=== PATIENT | female | born 1965 | race Caucasian/White ===

== ENCOUNTER 2020-01-23 23:08 | Emergency (ER) | payer SELFPAY ==
[~2020-01-23] VITALS: Ht 193 cm; Wt 76.0 kg
[2020-01-23 23:08] VITALS: BP 124/76
[2020-01-23] MEDS ORDERED: KETOROLAC 15 MG/ML VIAL. IVP ONE (23:45)
[2020-01-23] MEDS ORDERED: IV NORMAL SALINE 1,000ML 1,000 ML IV ONE (23:45)
[2020-01-23] MEDS ORDERED: IOHEXOL 300 MG/ML 75 ML VIAL. IV ONE (23:45)
[2020-01-23] MEDS ORDERED: FAMOTIDINE 20 MG/2 ML VIAL IVP ONE (23:45)
[2020-01-23] MEDS ORDERED: CONTRAST GIVEN MC PRN (23:45)
[2020-01-23 23:49] LABS: BASO % 1 % (0-3); EOS # 0.1 x10^3/uL (0.0-0.7); EOS % 1 % (0-3); HEMATOCRIT 37.3 % (36.0-47.0); HEMOGLOBIN 12.1 g/dL (12.0-15.5); LYMPH # 2.6 x10^3/uL (1.0-4.8); LYMPH % 43 % (24-48); MEAN CORPUSCULAR HEMOGLOBIN 27 pg (25-35); MEAN CORPUSCULAR HGB CONC 33 g/dL (31-37); MEAN CORPUSCULAR VOLUME 83 fL (79-100); MONO # 0.5 x10^3/uL (0.0-1.1); MONO % 8 % (0-9); NEUT # 2.9 x10^3uL (1.8-7.7); NEUT % 47 % (31-73); PLATELET COUNT 246 x10^3/uL (140-400); RED BLOOD COUNT 4.49 x10^6/uL (3.50-5.40); RED CELL DISTRIBUTION WIDTH 13.7 % (11.5-14.5); WHITE BLOOD COUNT 6.1 x10^3/uL (4.0-11.0)
[2020-01-23 23:57] LABS: BACTERIA,URINE 0 /HPF (0-FEW); BILIRUBIN,URINE NEG (NEG); CLARITY,URINE CLEAR; COLOR,URINE YELLOW; GLUCOSE,URINE NEG (NEG); NITRITE,URINE NEG (NEG); RBC,URINE 0 /HPF (0-2); SQUAMOUS EPITHELIAL CELL,UR OCC /LPF; UROBILINOGEN,URINE 0.2 mg/dL (0.2 mg/dL); WBC,URINE OCC /HPF (0-4)
[2020-01-24] LABS: CREATININE 0.8 mg/dL (0.6-1.0); GFR 74.7; POTASSIUM 3.6 mmol/L (3.5-5.1)
[2020-01-24 00:06] LABS: ALBUMIN 3.8 g/dL (3.4-5.0); MAGNESIUM 2.3 mg/dL (1.8-2.4); TOTAL BILIRUBIN 0.3 mg/dL (0.2-1.0); TOTAL PROTEIN 7.7 g/dL (6.4-8.2)
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
[2020-01-24] MEDS ORDERED: ONDANSETRON PF 4 MG/2 ML VIAL. IVP ONE (00:45)
--- NOTE | 2020-01-24 00:45 | RAD ---
CT scan of the abdomen and pelvis with contrast 01/24/2020 CLINICAL HISTORY: Left lower quadrant abdominal pain. TECHNIQUE: After the intravenous administration of 75 cc of Omnipaque 300, contiguous, 5 mm axial sections were obtained through the abdomen and pelvis. One or more of the following individualized dose reduction techniques were utilized for this study: 1. Automated exposure control. 2. Adjustment of the mA and/or kV according to patient size. 3. Use of iterative reconstruction technique. FINDINGS: Images through the lung bases demonstrate minimal dependent subsegmental atelectasis bilaterally. The liver, spleen, pancreas, adrenal glands and kidneys are within normal limits. Atherosclerotic calcification of the abdominal aorta is seen. The abdominal aorta tapers normally. The gallbladder is contracted. No free fluid or free air is seen within the abdomen. There is no evidence of bowel obstruction. Air and stool seen throughout the colon. The appendix is well-visualized and is within normal limits. Images through the pelvis demonstrate the urinary bladder distended with urine. Calcifications are seen within the pelvis consistent with phleboliths. Scattered diverticula are seen involving the sigmoid colon. No inflammatory changes are seen in the adjacent fat. No free fluid or abnormal fluid collection is noted. No adnexal mass is seen. Mild S-shaped curvature of the thoracolumbar spine is seen. Degenerative changes are seen involving the lower thoracic and mid and lower lumbar spine. IMPRESSION: No acute abnormality is seen. Electronically signed by: Stephen Curtis MD (01/24/2020 12:43 AM) [id number]
[2020-01-24] MEDS ORDERED: FAMO-63 PO (00:54)
[2020-01-24] MEDS ORDERED: HYOS0.1265 SL (00:54)
[2020-01-24] MEDS ORDERED: ONDA4TAB12 PO (00:54)
[2020-01-24] MEDS ORDERED: DICYCLOMINE 20 MG/2 ML VIAL. IM ONE (01:30)
== END 2020-01-24 01:15 | disposition home or self-care (01) ==
LOC: ER 23:08
DX: R10.32 Left lower quadrant pain (principal); R11.0 Nausea; K92.1 Melena; F17.210 Nicotine dependence, cigarettes, uncomplicated; Z98.51 Tubal ligation status; Z98.890 Other specified postprocedural states; Z88.8 Allergy status to other drugs, medicaments and biological substances
CPT/HCPCS: 36415; 74177; 80053; 81001; 83605; 83690; 83735; 85025; 85610; 85730; 96374; 96375; 99285; J1885; J2405; J3490; Q9967; J7030